=== PATIENT | male | born 1980 | race Caucasian/White ===

== ENCOUNTER 2018-05-08 09:56 | Inpatient (IN) ==
[2018-05-08] MEDS ORDERED: Isovue-370 500 ML INFUS..BTL IV ONE (10:12)
[2018-05-08] MEDS ORDERED: Piperacillin/Tazobactam 3.375 GM in 0.9 % Sodium Chloride Mini Bag 100 ML IVPB ONE (10:15)
--- NOTE | 2018-05-08 10:20 | Emergency Department Note ---
Disposition Clinical Impression: Abscess Cellulitis Qualifiers: Site of cellulitis: extremity Site of cellulitis of extremity: lower extremity Laterality: right Qualified Code(s): L03.115 - Cellulitis of right lower limb Sepsis Qualifiers: Sepsis type: sepsis due to unspecified organism Qualified Code(s): A41.9 - Sepsis, unspecified organism Disposition: Admitted As Inpatient Condition: Fair Referrals: Harry Perry Jr, MD [Primary Care Provider] - Forms: ED Satisfaction Letter Time of Disposition: 13:30 Extremity Problem HPI - General Chief complaint: ED Extremity Problem,Nontraumatic Stated complaint: right leg red, swollen, painful, NV, fever, headac Time Seen by Provider: 05/08/18 10:12 Source: patient Mode of arrival: ambulatory Limitations: no limitations Nursing Notes Reviewed: Yes Vital Signs Reviewed: Yes - History of Present Illness HPI Narrative: Patient presents to the ED the chief complaint of right lower extremity pain and swelling. States it started 3 days ago. Reports that he injured his leg 4 years ago and has had a small pocket of fluid on his medial kebede since then. States that he thought he may have hit that because that area was sore 4 days ago. 3 days ago he started developing some erythema. Over the last 48 hours, the area has significantly worsened with erythema, pain and swelling extending down into his ankle and up past his knee. He said subjective fever or chills and diaphoresis. No chest pain, shortness breath, abdominal pain, nausea, vomiting or diarrhea. No history of diabetes. Pain Scale: 7 - Related Data Home Medications Medication Instructions Recorded Confirmed Escitalopram [Lexapro] 10 mg PO DAILY 05/08/18 05/08/18 Ibuprofen [Motrin Ib] 800 mg PO Q8H PRN 05/08/18 05/08/18 Naproxen [Naprosyn] 250 mg PO BID PRN 05/08/18 05/08/18 OxyCODONE/APAP 5/325 [Percocet 1 each PO Q6HR PRN 05/08/18 05/08/18 5/325 MG] diazePAM [Valium] 10 mg PO DAILY PRN 05/08/18 05/08/18 Allergies Allergy/AdvReac Type Severity Reaction Status Date / Time No Known Allergies Allergy Verified 05/08/18 12:54 Review of Systems: As reviewed in the HPI. All other systems reviewed are negative or normal. Past Medical History - Past Medical History Attestation: Yes The following information was validated with the patient. Source: patient Medical history: Reports: other Psychiatric history: Reports: no psych history - Social History Smoking Status: Current every day smoker Smokeless Tobacco Status: Yes Alcohol use: Reports: none Drug use: Reports: none Physical Exam - General Limitations: no limitations General appearance: alert, in no apparent distress - Head Head exam: atraumatic, normocephalic, normal inspection - Eye Eye exam: Present: normal appearance, PERRL, EOMI - ENT ENT exam: normal exam, normal oropharynx, mucous membranes moist - Chest Chest inspection: Present: normal inspection, symmetric chest wall rise - Respiratory Respiratory exam: Present: normal lung sounds bilaterally - Cardiovascular Cardiovascular exam: Present: normal rhythm, tachycardia, normal heart sounds. Absent: regular rate - Abdominal Exam Abdominal exam: Present: soft, Non-Tender. Absent: tenderness, distention, guarding, rebound, rigidity - Expanded Lower Extremity Exam Hip/Pelvis exam: Present: normal inspection, full ROM Upper leg exam: Present: normal inspection, full ROM Knee exam: Present: normal inspection, full ROM. Absent: tenderness, swelling Lower leg exam: Present: full ROM, tenderness, swelling, erythema, Achilles tendon intact, other (edema, warmth, significant cellulitis ). Absent: normal inspection, crepitus Ankle exam: Present: full ROM, tenderness, swelling, erythema Foot/toe exam: Present: tenderness, swelling, erythema Neurovascular/Tendon exam: Present: normal capillary refill. Absent: motor deficit, sensory deficit, tendon deficit - Neurological Exam Neurological exam: Present: alert, oriented X3 - Psychiatric Psychiatric exam: Present: normal affect, normal mood - Skin Skin exam: Present: warm, dry, intact, erythema. Absent: normal color Course Course Narrative: Patient presenting with a right lower extremity cellulitis. Could possibly have a DVT as well, although less likely. We will get a CT of his leg and labs cultures. He will most definitely need IV antibiotics, so we will go ahead and start those now. In getting a CT to evaluate for deeper soft tissue infection, abscess, surgical indications. - Reevaluation(s) Reevaluation #1: LRINEC score is 7 due to CRP, Na, and glucose. Awaiting CT results for further dispo. 1307: No obvious gas to me on CT. Still has not been read. ABX are in. Called [facility] who states no one has picked up the study yet and would get a radiologist on that as soon as possible. Reevaluation #2: patient has an abscess and extensive cellulitis, no gas. However, abscess is exactly where patient reports chronic fluctuance/swelling from a previous injury. CT did not highlight differentiation between fascia and muscle layer well here so is difficult to tell. Spoke with surgery, Dr. Kong, will review CT. Will admit to medicine for cellulitis until determination for possible OR/d bridement is made. Time: 13:28 Vital Signs Temperature 98.2 F 05/08/18 10:00 Pulse Rate 122 05/08/18 10:00 Respiratory Rate 20 05/08/18 10:00 Blood Pressure 154/92 05/08/18 10:00 O2 Sat by Pulse Oximetry 94 05/08/18 10:00 Temperature 98.2 F 05/08/18 10:00 Pulse Rate 91 05/08/18 11:42 Respiratory Rate 18 05/08/18 11:42 Blood Pressure 139/93 05/08/18 11:42 O2 Sat by Pulse Oximetry 93 05/08/18 11:42 Oxygen Delivery Oxygen Delivery Room Air Extremity Problem, Nontraumati - Lab Data Result diagrams: 05/08/18 10:25 05/08/18 10:25 Lab Results 05/08/18 05/08/18 05/08/18 Range/Units 10:25 10:25 10:25 WBC 14.8 H (4.3-11.1) K/mcL RBC 4.82 (4.19-5.50) M/mcL Hgb 15.3 (12.9-16.9) g/dL Hct 44.9 (37.5-50.1) % MCV 93.2 (83.0-100.0) fL MCH 31.7 (28.0-33.3) pg MCHC 34.1 (31.6-35.5) g/dL RDW 11.9 (11.5-14.5) % Plt Count 219 (140-400) K/mcL MPV 9.4 (9.4-12.4) fL Immature Gran % 0.9 (0-4) % Seg Neutrophils % 84.2 % Lymphocytes % 6.4 % Monocytes % 4.1 % Eosinophils % 4.2 % Basophils % 0.2 % Neutrophils # 12.4 H (1.6-8.9) K/mcL Lymphocytes # 1.0 (0.6-4.6) K/mcL Monocytes # 0.6 (0.0-1.3) K/mcL Eosinophils # 0.6 (0.0-0.6) K/mcL Basophils # 0.0 (0.0-0.2) K/mcL Sodium 131 L (136-145) mEq/L Potassium 4.2 (3.5-5.1) mEq/L Chloride 100 (98-107) mEq/L Carbon Dioxide 22 L (23-29) mEq/L BUN 10 (6-20) mg/dL Creatinine 0.88 (0.70-1.30) mg/dL Est GFR ( Amer) > 60 (> 60) Est GFR (Non-Af Amer) > 60 (> 60) BUN/Creatinine Ratio 11 (6-26) Glucose 203 H (70-105) mg/dL Calculated Osmolality 277 L (280-300) Lactic Acid 1.2 (0.5-2.2) mmol/L Calcium 9.1 (8.6-10.3) mg/dL C-Reactive Protein 260 H (Less than 10) mg/L Critical Care Time Critical Care Time: Yes Total Critical Care Time: 35 Attestation: Critical care time 35 minutes managing patient's condition. Attestation Statement - Attestation Attestation: Patient was seen with resident physician. I reviewed the history, physical, assessment and plan, and agree with the findings. I also personally evaluated this patient and had [id number] time with this patient. 37-year-old male presents to the emergency Department chief complaint of pain swelling or redness to the right lower extremity. Patient states he developed a hematoma sometime ago, but then the last 24-48 hours she has developed fevers redness and rapid increase in swelling. He is not sure if he had a bug bite or scratch the area but he does not have any open wounds on it. He is not a diabetic. He does have some posterior calf and thigh pain as well. He says the pain is radiating anteriorly. Primarily focused around the ankle and anterior kebede oriented has a bruise and the development of redness. Review of systems as above remainder negative. Vital signs tachycardic blood pressure stable. ENT is unremarkable. Heart regular rhythm and rate Lungs are clear. Abdomen soft nontender. Extremities patient has significant swelling of the right lower extremity as compared to the left. He has got redness warmth and pain on the posterior calf and posterior thigh. Neurologically intact. Skin demonstrates developing cellulitis in the right lower extremity. ED course on arrival with the patient's tachycardia he basically met septic criteria. With his ascending pain we are concerned also about possibilities of DVT. An ultrasound was obtained that did not reveal any DVT at this time. We will get a CT scan to make sure there is no free air in the extremity is not developing necrotizing fasciitis. We will start the patient on IV antibiotics draw blood cultures and labs. These demonstrated elevated white cell count. CT scan revealed what appears to be a deeper space abscess. There is nothing drainable in the ED, more of a surgical issue and surgery was notified. We will admit to the hospitalist service for further evaluation and treatment. Agree with resident physician assessment and plan. Critical care time 35 minutes.
[2018-05-08] MEDS ORDERED: *HR* HYDROmorphone (PF) 1 MG/ML SYRINGE IVP ONE ×2 (10:31→14:28)
[2018-05-08] MEDS ORDERED: Ondansetron 4 MG/2 ML VIAL IVP ONE (10:31)
[2018-05-08 10:41] LABS: Basophils % 0.2 %; Eosinophils # 0.6 K/mcL (0.0-0.6); Eosinophils % 4.2 %; Hematocrit 44.9 % (37.5-50.1); Hemoglobin 15.3 g/dL (12.9-16.9); Immature Granulocytes % 0.9 % (0-4); Lymphocytes % 6.4 %; Mean Corpuscular HGB Conc 34.1 g/dL (31.6-35.5); Mean Corpuscular Hemoglobin 31.7 pg (28.0-33.3); Mean Corpuscular Volume 93.2 fL (83.0-100.0); Mean Platelet Volume 9.4 fL (9.4-12.4); Monocytes # 0.6 K/mcL (0.0-1.3); Monocytes % 4.1 %; Neutrophils # 12.4 K/mcL (1.6-8.9); Platelet Count 219 K/mcL (140-400); Red Blood Count 4.82 M/mcL (4.19-5.50); Red Cell Distribution Width 11.9 % (11.5-14.5); Segmented Neutrophils % 84.2 %
[2018-05-08] MEDS: 0.9 % Sodium Chloride 1,000 ML IVC SCH ×3 (10:57→16:44)
[2018-05-08 11:08] LABS: BUN/Creatinine Ratio 11 (6-26); Blood Urea Nitrogen 10 mg/dL (6-20); C-Reactive Protein 260 mg/L (Less than 10); Calcium 9.1 mg/dL (8.6-10.3); Carbon Dioxide 22 mEq/L (23-29); Chloride 100 mEq/L (98-107); Glucose 203 mg/dL (70-105); Osmolality,Calculated 277 (280-300); Potassium 4.2 mEq/L (3.5-5.1); Sodium 131 mEq/L (136-145); eGFR For African Americans > 60 (> 60); eGFR For Non-African Americans > 60 (> 60)
[2018-05-08] MEDS ORDERED: Naloxone 0.4 MG/ML INJ IVP PRN (14:11)
[2018-05-08] MEDS ORDERED: *HR* OxyCODONE/APAP 5/325 TABLET PO PRN (14:16)
[2018-05-08] MEDS ORDERED: 0.9 % Sodium Chloride 1,000 ML ONE (14:21)
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
[2018-05-08] MEDS: Ketorolac 30 MG/ML VIAL IVP PRN ×2 (16:47→22:21)
[2018-05-08] MEDS: Acetaminophen 325 MG TABLET PO PRN (18:24)
[2018-05-08] MEDS: *HR* OxyCODONE/APAP 7.5/325 TABLET PO PRN (18:29)
[2018-05-08] MEDS: Ampicillin/Sulbactam 3,000 MG in 0.9 % Sodium Chloride Mini Bag 100 ML IVPB SCH (20:06)
[2018-05-08] MEDS: diazePAM 10 MG TABLET PO PRN (20:06)
[2018-05-09] MEDS: *HR* OxyCODONE/APAP 7.5/325 TABLET PO PRN ×4 (00:25→21:15)
[2018-05-09] MEDS: Acetaminophen 325 MG TABLET PO PRN ×2 (00:27→20:08)
[2018-05-09] MEDS: Ampicillin/Sulbactam 3,000 MG in 0.9 % Sodium Chloride Mini Bag 100 ML IVPB SCH ×4 (02:05→20:07)
[2018-05-09] MEDS: 0.9 % Sodium Chloride 1,000 ML IVC SCH (04:51)
[2018-05-09] MEDS: Ketorolac 30 MG/ML VIAL IVP PRN ×2 (04:51→18:13)
[2018-05-09 06:35] LABS: Basophils % 0.2 %; Eosinophils # 0.8 K/mcL (0.0-0.6); Eosinophils % 6.5 %; Hematocrit 40.2 % (37.5-50.1); Lymphocytes # 1.8 K/mcL (0.6-4.6); Lymphocytes % 14.5 %; Mean Corpuscular HGB Conc 34.1 g/dL (31.6-35.5); Mean Corpuscular Hemoglobin 32.5 pg (28.0-33.3); Mean Corpuscular Volume 95.3 fL (83.0-100.0); Mean Platelet Volume 9.8 fL (9.4-12.4); Monocytes # 0.7 K/mcL (0.0-1.3); Monocytes % 5.9 %; Platelet Count 229 K/mcL (140-400); Red Blood Count 4.22 M/mcL (4.19-5.50); Red Cell Distribution Width 11.9 % (11.5-14.5); Segmented Neutrophils % 71.9 %
[2018-05-09 06:37] LABS: Hemoglobin 13.7 g/dL (12.9-16.9)
[2018-05-09 06:46] LABS: Estimated Average Glucose 117 mg/dl; Hemoglobin A1C 5.7 %
[2018-05-09 06:59] LABS: BUN/Creatinine Ratio 10 (6-26); Blood Urea Nitrogen 8 mg/dL (6-20); Calcium 8.3 mg/dL (8.6-10.3); Carbon Dioxide 22 mEq/L (23-29); Chloride 104 mEq/L (98-107); Glucose 148 mg/dL (70-105); Osmolality,Calculated 281 (280-300); Potassium 3.7 mEq/L (3.5-5.1); Sodium 135 mEq/L (136-145); eGFR For African Americans > 60 (> 60); eGFR For Non-African Americans > 60 (> 60)
--- NOTE | 2018-05-09 13:31 | Internal Med Progress Note ---
Date of Encounter: 05/09/18 Time of Encounter: 12:45 - Assessment and plan (1) Sepsis Current Visit: Yes Status: Acute Assessment and plan: due to RLE cellulitis/abscess SIRS 2/4, afebrile today WBC improving on abx, continue Qualifiers: Sepsis type: sepsis due to unspecified organism Qualified Code(s): A41.9 - Sepsis, unspecified organism (2) Abscess Current Visit: Yes Status: Acute Assessment and plan: as above, continue abx and follow with surgery A1c 5.7, non-diabetic (3) Cellulitis Current Visit: Yes Status: Acute Assessment and plan: abx as above Qualifiers: Site of cellulitis: extremity Site of cellulitis of extremity: lower extremity Laterality: right Qualified Code(s): L03.115 - Cellulitis of right lower limb (4) DVT prophylaxis Current Visit: Yes Status: Acute Assessment and plan: scd - Time Spent With Patient Total time spent is greater than 50% in coordination of care (as documented) at patient's floor/unit and/or counseling patient: - Subjective Interval history: feels better after being on IV abx, no fever/chills. - Constitutional Vitals: Temp Pulse Resp BP Pulse Ox 98 F 82 16 132/79 94 05/09/18 11:01 05/09/18 11:01 05/09/18 11:01 05/09/18 11:01 05/09/18 11:01 General appearance: Present: A&O X 3, morbidly obese Exam: General: Alert and oriented HEENT:EOM, pupils equal, round, and reactive. Cardiovascular:Normal S1 & S2, no murmurs or gallops. No JVD. Pulse regular. Lungs:Normal breath sounds, no wheezes or crackles. Abdomen:Soft, non-tender, no rigidity. Extremities: R thigh/kebede erythema decreasing in size, mildly tender to touch. Palpable fluid collection at the anteromedial aspect of midshin Rest of the physical exam is non-contributory Internal Medicine: Result - Labs CBC & Chem 7: 05/09/18 05:25 05/09/18 05:25 Labs: Short CBC 05/09/18 Range/Units 05:25 WBC 12.5 H (4.3-11.1) K/mcL Hgb 13.7 D (12.9-16.9) g/dL Hct 40.2 (37.5-50.1) % Plt Count 229 (140-400) K/mcL Neutrophils # 9.0 H (1.6-8.9) K/mcL BMP 05/09/18 05:25 Sodium 135 L Potassium 3.7 Chloride 104 Carbon Dioxide 22 L BUN 8 Creatinine 0.83 Glucose 148 H Calcium 8.3 L - VTE Documentation of Mechanical Device: Venous foot pump, device Consult Discharge Plan - Plan Referrals: Harry Perry Jr, MD [Primary Care Provider] -
[2018-05-09] MEDS: diazePAM 10 MG TABLET PO PRN (14:52)
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
[2018-05-09] MEDS: *HR* Heparin 5,000 UNIT/ML VIAL SQ SCH (21:15)
[2018-05-10] MEDS: Ketorolac 30 MG/ML VIAL IVP PRN ×3 (00:44→15:56)
[2018-05-10] MEDS: Ampicillin/Sulbactam 3,000 MG in 0.9 % Sodium Chloride Mini Bag 100 ML IVPB SCH ×3 (02:00→14:37)
[2018-05-10 02:08] LABS: Basophils % 0.2 %; Eosinophils # 0.8 K/mcL (0.0-0.6); Eosinophils % 7.6 %; Hematocrit 38.2 % (37.5-50.1); Hemoglobin 12.9 g/dL (12.9-16.9); Immature Granulocytes % 0.8 % (0-4); Lymphocytes % 18.3 %; Mean Corpuscular HGB Conc 33.8 g/dL (31.6-35.5); Mean Corpuscular Hemoglobin 32.3 pg (28.0-33.3); Mean Corpuscular Volume 95.7 fL (83.0-100.0); Mean Platelet Volume 9.5 fL (9.4-12.4); Monocytes # 0.7 K/mcL (0.0-1.3); Monocytes % 6.7 %; Neutrophils # 7.3 K/mcL (1.6-8.9); Platelet Count 235 K/mcL (140-400); Red Blood Count 3.99 M/mcL (4.19-5.50); Red Cell Distribution Width 11.7 % (11.5-14.5); Segmented Neutrophils % 66.4 %
[2018-05-10 02:23] LABS: BUN/Creatinine Ratio 12 (6-26); Blood Urea Nitrogen 11 mg/dL (6-20); Calcium 8.8 mg/dL (8.6-10.3); Carbon Dioxide 26 mEq/L (23-29); Chloride 102 mEq/L (98-107); Glucose 181 mg/dL (70-105); Osmolality,Calculated 284 (280-300); Potassium 3.8 mEq/L (3.5-5.1); Sodium 135 mEq/L (136-145); eGFR For African Americans > 60 (> 60); eGFR For Non-African Americans > 60 (> 60)
[2018-05-10] MEDS: *HR* Heparin 5,000 UNIT/ML VIAL SQ SCH ×2 (06:41→14:37)
[2018-05-10] MEDS: *HR* OxyCODONE/APAP 7.5/325 TABLET PO PRN ×2 (07:03→13:36)
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
[2018-05-10] MEDS: diazePAM 10 MG TABLET PO PRN (09:38)
[2018-05-10] MEDS ORDERED: Gadolinium Contrast Agent (WT Based) IV PRN (10:12)
--- NOTE | 2018-05-10 10:26 | Discharge Summary ---
Orders not resulted at time of discharge: Pending orders 05/10/18 10:12 MR lower leg RT wo/w con [MR] Routine Date of Encounter: 05/10/18 Time of Encounter: 08:45 - Discharge Diagnosis (1) Sepsis Priority: Primary Status: Acute Qualifiers: Sepsis type: sepsis due to unspecified organism Qualified Code(s): A41.9 - Sepsis, unspecified organism (2) Abscess Priority: Secondary Status: Acute (3) Cellulitis Priority: Secondary Status: Acute Qualifiers: Site of cellulitis: extremity Site of cellulitis of extremity: lower extremity Laterality: right Qualified Code(s): L03.115 - Cellulitis of right lower limb (4) DVT prophylaxis Priority: Secondary Status: Acute Hospital course: Mr. Null is a 37 year old male presented with R LE redness, pain, and swelling. Had long-standing cyst on the anterior aspect of R kebede after the trauma for few years. SIRS 2/4 for leukocytosis and tachycardia. ESR/CRP elevated as well. CT showed abscess along the R anteromedial aspect of the leg. No surgical interventions were deemed necessary for now but he ended up getting the MRI done just before he left for which the report is pending as it was done late in the afternoon. Given his low grade fever on the night of 05/09, I advised him to stay for one more day for monitoring but he was very keen on leaving the hospital. Given his clinical improvement with downtrending WBC, he is to be discharged home on 05/10 with PO doxycycline but I explicitly explained to him to return to the ED or follow sooner with ortho/surgery if there is any signs of worsening cellulitis or new fever/chills. He will follow up with orthopedic for the pending MRI report as well. Discharge discussed with: patient, nurse - Time Spent with Patient Total time spent providing and/or coordinating discharge services: Greater than 30 minutes - Discharge Medications Prescriptions: RX: Doxycycline 100 mg PO BID 7 Days #14 capsule Home Medications: RX: Escitalopram [Lexapro] 10 mg PO DAILY 05/08/18 [History] RX: OxyCODONE/APAP 5/325 [Percocet 5/325 MG] 1 each PO Q6HR PRN 05/08/18 [ History] RX: diazePAM [Valium] 10 mg PO DAILY PRN 05/08/18 [History] RX: Doxycycline 100 mg PO BID 7 Days #14 capsule 05/10/18 [Rx] Allergies/Adverse Reactions: 3 Allergy/AdvReac Type Severity Reaction Status Date / Time No Known Allergies Allergy Verified 05/08/18 12:54 Date of admission: 05/08/18 14:37 Primary care physician: Harry Perry Jr, MD - Constitutional Vitals: Temp Pulse Resp BP Pulse Ox 98.2 F 73 16 153/108 96 05/10/18 07:00 05/10/18 07:00 05/10/18 07:00 05/10/18 07:00 05/10/18 07:00 General appearance: Present: A&O X 3, morbidly obese Exam: General: Alert and oriented HEENT:EOM, pupils equal, round, and reactive. Cardiovascular:Normal S1 & S2, no murmurs or gallops. No JVD. Pulse regular. Lungs:Normal breath sounds, no wheezes or crackles. Abdomen:Soft, non-tender, no rigidity. Extremities: R thigh/kebede erythema decreasing in size, minimally tender to touch. Palpable fluid collection at the anteromedial aspect of midshin Rest of the physical exam is non-contributory - Patient Status Disposition: Home, Self-Care Condition: Fair - Discharge Instructions Instructions: Cellulitis (DC), Sepsis (DC) Follow Up With: Scarlett Chapa PAC [Physician Dial Lathe Operator] - 05/13/18 9:00 Harry Wells Jr, MD [Primary Care Provider] - - Diet and Activity Activity: resume usual activities as tolerated Diet: regular diet - VTE Documentation of Mechanical Device: Venous foot pump, device
[2018-05-10 15:03] VITALS: BP 152/94
== END 2018-05-10 18:54 | disposition home or self-care (01) | DRG 872 ==
LOC: EMEROO 09:56 → SUATTDRO 14:37 → 3ANU 14:37
PROVIDERS: ADMIT Internal Medicine; ATTEND Internal Medicine